=== PATIENT | male | born 1980 | race Caucasian/White ===

== ENCOUNTER → 2020-10-02 | Outpatient (CLI) | payer OTHER ==
[~2020-10-02] MED LIST: DOXYCYCLINE MO100 MG PO; IBU800 MG PO; PEPCID20 MG PO; VENTOLIN HFA 66.7 GM INH; ZOFRAN ODT 4 MG4 MG PO; ZYRTEC-D TABLE1 EACH PO
== END ==
LOC: HEART 5 09-18 11:00
DX: R07.9 Chest pain, unspecified (principal)

== ENCOUNTER 2020-11-02 07:09 | Emergency (ER) | payer OTHER ==
[2020-11-02 08:28] LABS: HEMOGLOBIN 15.2 gm/dl (14.0-17.5); RED BLOOD COUNT 4.77 M/UL (4.20-5.50); WHITE BLOOD COUNT 5.7 K/UL (4.5-11.0)
[2020-11-02 08:41] LABS: BUN/CREATININE RATIO 17 (0-10)
[2020-11-02] MEDS ORDERED: IBU800 MG PO (09:54)
[2020-11-02] MEDS ORDERED: VENTOLIN HFA 66.7 GM INH (09:54)
[2020-11-02] MEDS ORDERED: PEPCID20 MG PO (09:54)
[2020-11-02] MEDS ORDERED: DOXYCYCLINE MO100 MG PO (09:54)
[2020-11-02] MEDS ORDERED: ZYRTEC-D TABLE1 EACH PO (09:54)
[2020-11-02] MEDS ORDERED: ZOFRAN ODT 4 MG4 MG PO (09:54)
== END 2020-11-02 10:11 | disposition home or self-care (01) ==
LOC: ER1 07:09
PROVIDERS: Nurse Practitioner
DX: U07.1 COVID-19 (principal); J12.82 Pneumonia due to coronavirus disease 2019; R79.89 Other specified abnormal findings of blood chemistry; I10 Essential (primary) hypertension; Z90.49 Acquired absence of other specified parts of digestive tract; Z79.899 Other long term (current) drug therapy
CPT/HCPCS: 0240U; 71045; 80053; 83690; 85025; 93005; 96374; 96375; 99284; J1885; J2405